=== PATIENT | male | born 1970 | race Caucasian/White ===

== ENCOUNTER 2021-07-13 06:04 | Emergency (ER) | payer BC, MEDICAID, SELFPAY ==
--- NOTE | ~2021-07-13 | XR_ITS ---
EXAMINATION: XR ankle LT min 3V DATE: 07/13/2021 06:19 INDICATION: Left ankle pain TECHNIQUE: Anteroposterior, oblique, mortise, and lateral views of the left ankle were obtained. COMPARISON: None. FINDINGS: Fixation lag screws at the medial malleolus and interfragmentary screw and lateral plate and screw fi xation at the lateral malleolus. The previously acute medial malleolar fracture has healed in near an atomic alignment. No acute fractures identified. 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 No definitive joint effusion. Soft tissue swelling about the lateral malleolus. IMPRESSION: 1. No acute osseous abnormality. 2. Old healed internally fixed fractures of the medial and lateral malleoli with mild secondary osteo arthritis at the left ankle. Reviewed, dictated and finalized at location A. IMPRESSION: 1. No acute osseous abnormality. 2. Old healed internally fixed fractures of the medial and lateral malleoli wit h mild secondary osteoarthritis at the left ankle.
[2021-07-13 06:00] VITALS: BP 119/79; PULSE 81; RESP 18; TEMP 36.5; O2SAT 100
--- NOTE | 2021-07-13 06:22 | ED.LOWEXIN ---
HPI - Extremity Injury (Lower) General Chief Complaint: Extremity Injury, Lower Stated Complaint: pain in foot History of Present Illness HPI Narrative: Patient is a 51-year-old male who presents to the ER with pain in his left ankle and conklin. Reports she has been walking excessively just going to visit his friends. In the last day he is walked from [place] to [place] and then to [place]. Reports she did increase the discomfort ambulance to the ER to be evaluated. He is tried no pain medication. Has history of surgery to the affected ankle. No swelling. No numbness or tingling. He does have some post to state that he is dressed on his own. No fevers or chills or sweats. No trauma. Majority of his pain is in his anterior conklin and radiates down to the dorsum of his foot. It is worsened with dorsiflexion. Related Data Allergies Allergy/AdvReac Type Severity Reaction Status Date / Time iodine Allergy Swelling Verified 07/13/21 06:03 of Lip/Tongue/Throat iohexol Allergy Swelling Verified 07/13/21 06:03 [From contrast - CT, X-RAY] of Lip/Tongue/Throat shellfish derived Allergy Swelling Verified 07/13/21 06:03 of Lip/Tongue/Throat Review of Systems Review of Systems: All systems reviewed & are unremarkable except as noted in HPI and below Constitutional: Constitutional: Denies chills and Denies fever(s) Musculoskeletal: Musculoskeletal: Reports arthralgias and Denies joint swelling Integumentary/Breasts: Skin/Breast: Denies pruritus and Denies rash Comments: Blisters on feet Neurologic: Denies focal weakness and Denies numbness PMFSH Past Medical History Medical History (Updated 07/13/21 @ 06:28 by Roni Burgos MD) Healthy adult male Surgical History Surgical History (Updated 07/13/21 @ 06:24 by Roni Burgos MD) History of ankle surgery Exam Narrative: GENERAL: Well-appearing, well-nourished, and in no acute distress. HEAD: Normocephalic, atraumatic. ENT: Mucous membranes moist. HEART: Regular rate and rhythm. Normal peripheral pulses. EXTREMITIES: Normal range of motion. No edema. Mild discomfort over the anterior aspect left conklin and anterior joint line. No edema. No tenderness of the medial or lateral malleoli on left side. There are some blisters over the plantar aspect of the foot/second toe. SKIN: Warm, dry, no rash. NEURO: Alert and oriented x3. PSYCH: Normal mood and affect. Course Course Emergency Course: Patient may be suffering from shinsplints as well as some chronic pain related to previous surgery to that ankle. Patient treat with anti-inflammatories. Discussed treatment plan for home and patient verbalized understanding. Vital Signs Vital signs: Vital Signs Temperature 97.7 F 07/13/21 06:00 Pulse Rate 81 07/13/21 06:00 Respiratory Rate 18 07/13/21 06:00 Blood Pressure 119/79 07/13/21 06:00 Pulse Oximetry 100 07/13/21 06:00 Temperature 97.7 F 07/13/21 06:00 Pulse Rate 81 07/13/21 06:00 Respiratory Rate 18 07/13/21 06:00 Blood Pressure 119/79 07/13/21 06:00 Pulse Oximetry 100 07/13/21 06:00 MDM - Extremity Injury (Lower) Imaging Data My impression: X-ray left ankle: No acute injury. Surgical hardware noted. Discharge Plan Discharge Clinical Impression: Anterior conklin splints Patient Disposition: Home, Self-Care Condition: Stable Instructions: Musculoskeletal Pain (ED), P.R.I.C.E. Treatment (ED) Additional Instructions: You are having pain due to overuse of the anterior tibialis muscle in your conklin. You should rest for the lower extremity to help with healing, take anti-inflammatories help with pain, elevate the affected area and also use ice to help. Return the ER if you suffer new injury, you have focal weakness or numbness to your foot/ankle, or you have additional concerns. Prescriptions: New naproxen 375 mg tablet 375 mg PO BID Qty: 14 RF: 0 Follow-up/Referr
--- NOTE | 2021-07-13 06:34 | PC.NURSE ---
emmanuel wrap applied to left conklin and ankle.
--- NOTE | 2021-07-13 06:43 | PC.NURSE ---
applied gauze and paper tape over blisters on both feet to provide cushion.
== END 2021-07-13 06:47 | disposition home or self-care (01) ==
LOC: ANHED 06:31
PROVIDERS: Emergency Provider Emergency Medicine; PCP Family Medicine
DX: S86.892A Other injury of other muscle(s) and tendon(s) at lower leg level, left leg, initial encounter (principal); X50.9XXA Other and unspecified overexertion or strenuous movements or postures, initial encounter; Y93.01 Activity, walking, marching and hiking
CPT/HCPCS: 73610; 99283